=== PATIENT | male | born 1970 | race Caucasian/White ===

== ENCOUNTER → 2018-02-12 | Day surgery (SDC) | payer OTHER ==
[~2018-02-12] VITALS: Ht 175.3 cm; Wt 133.2 kg
[~2018-02-12] MED LIST: AMLO10 PO; AMLO10TA2 PO; BUPIVACAINE HCL PF 0.5% 30 ML VIAL ONE; CHLORHEXIDINE GLUCONATE 2 % 1 PACK (2 CLOTHS) TOPICAL PRN; CHOL5000 PO; CLON0.5T PO; CYCL10TA PO; DO NOT ADM ANY ANTICOAGULANT DRUGS PRN; ENAL20TA81 PO; GEMFPOW3 XX; GENTAMICIN SULFATE 80 MG/2 ML VIAL ONE; GLYCOPYRROLATE 1 MG/5 ML SYRINGE IV PUSH ONE; GUAN1TAB PO; HYDR-755 PO; INSULIN HUMAN REGULAR 1,000 UNITS/10 ML VIAL SQ PRN; INVA1INJ IV; LACTATED RINGER'S 1000 ML IV PRN; LEVO75TA3 PO; LEXA20TA PO; LISI-515 PO; LITH450T PO; METF500T PO; METOPROLOL TARTRATE 25 MG TAB PO PRN; MIDAZOLAM HCL 2 MG/2 ML VIAL ONE; NEOSTIGMINE 5 MG/5 ML SYRINGE IV PUSH ONE; ONDANSETRON HCL 4 MG/2 ML VIAL IV ONE; ONDANSETRON HCL 4 MG/2 ML VIAL IV PUSH PRN; OXYC1TAB63 PO; PHENYLEPH/NS 1000 MCG/10 ML SYR IV ONE; PICC Daily Heparin 100 unit/mL Lock Flush IV FLUSH SCH; PICC PRN After Blood Draw NS Lock Flush IV FLUSH; PICC PRN Heparin 100 units/ml Lock Flush IV FLUSH; POTA10CA PO; POVIDONE IODINE 5% (ANTISEPSIS KIT) 4 APPLICATIONS EACH NARE PRN; PROPOFOL 200 MG/20 ML AMP IV ONE; ROCURONIUM INJ 50 MG/5 ML SYRINGE IV PUSH ONE; SIMV20TA PO; SODIUM CHLORID 0.9% 500 ML IV PRN; SODIUM CHLORIDE 0.9% FLUSH 10 ML FLUSH IV FLUSH PRN; VANCOMYCIN HCL 1000 MG VIAL ONE; VASOPRESSIN 20 UNITS/ML VIAL ONE; VENL75TA PO; ceFAZolin INJ 1,000 MG VIAL IV ONE; ePHEDrine/NS 25 MG/5 ML SYRINGE IV ONE; oxyCODONE/ACETAMINOPHEN 5 MG/325 MG TAB PO PRN
--- NOTE | 2018-02-12 15:31 | MR ---
cc: Katie Nunez DPM DATE: 02/12/2018 SURGEON: Katie Nunez DPM [employer]: None. PREOPERATIVE DIAGNOSIS: Left hallux open fracture, left hallux tendon laceration. POSTOPERATIVE DIAGNOSIS: Left hallux open fracture, left hallux tendon laceration. PROCEDURE: Left foot debridement and irrigation of the open fracture with tendon repair. ANESTHESIA: General with local infiltrate of 0.5% Marcaine plain infiltrated about the left foot. HEMOSTASIS: Pneumatic ankle tourniquet set at 250 mmHg for 53 minutes. ESTIMATED BLOOD LOSS: Less than 5 MATERIALS: 2-0, 3-0 Prolene, 3-0 Monocryl. INJECTABLES: None. COMPLICATIONS: None. INDICATIONS FOR PROCEDURE: The patient is a 47-year-old male who underwent syncopal episode while he was mowing the lawn and ran his foot over with the lawnmower. The patient was seen at [facility], at which time they performed a bedside irrigation and he was given IV antibiotics. The patient was discharged and seen by a different client experience specialist and presented to my office because the client experience specialist he saw in the emergency room did not take his insurance. The patient is on IV Invanz. The patient understands alternatives, risks, benefits, and complications associated with surgical intervention. The patient would like to proceed with surgical intervention. DESCRIPTION OF PROCEDURE: The patient was brought back to the operating room and placed on the operating room table in the supine position. General anesthesia was then induced. Pneumatic ankle tourniquet was placed, well padded around the left . Foot was prepped and draped in the usual sterile fashion. Attention was then directed to the medial aspect of left foot where open wound was noted. The left foot was exsanguinated with Esmarch and ankle tourniquet was inflated. Copious irrigation was performed to the left hallux laceration, medial first metatarsal laceration with gentamicin. Irrigation was performed. All necrotic nonviable tissue was debrided from wound. Full excisional debridement performed to bone. At this time, flexor tendon was identified and was pulled into view. All necrotic nonviable tendon was excisionally debrided. Once debridement was performed, tubularization of tendon was performed utilizing 2-0 Vicryl. The tendon was reanastomosed to distal insertion utilizing 2-0 Vicryl. Additional irrigation was then performed with normal saline and gentamicin. Subcutaneous tissue was closed with 3-0 Monocryl. Skin was closed with 2-0, 3-0 Prolene. Pneumatic ankle tourniquet was deflated. The left foot was dressed with Adaptic, 4 x 4's, cast padding, Yair. The patient tolerated procedure and anesthesia well. He was transferred from the OR to PACU with vital signs stable and neurovascular status intact to the left foot. The patient will followup in office in 1 week. He is to continue IV antibiotics per infectious disease. Vancomycin was placed to wound prior to closure. SUNSHINE Madsen/JENNIFER , 02:39 PM , 03:30 PM
[2018-02-12 15:49] VITALS: BP 126/81; PULSE 93; RESP 20; TEMP 98.6; O2SAT 96
== END | disposition home or self-care (01) ==
LOC: HSDC 09:42
PROVIDERS: ATTEND Podiatrist Foot & Ankle Surgery
DX: S96.022A Laceration of muscle and tendon of long flexor muscle of toe at ankle and foot level, left foot, initial encounter (principal); S92.402B Displaced unspecified fracture of left great toe, initial encounter for open fracture; I10 Essential (primary) hypertension; R55 Syncope and collapse; W31.89XA Contact with other specified machinery, initial encounter; Y93.H2 Activity, gardening and landscaping
CPT/HCPCS: 01470; 11044; 28200; 87015; 87070; 87102; 87116; 87176; 87205; 87206; J0690; J1580; J2250; J2370; J2405; J2710; J3010; J3370